=== PATIENT | male | born 1965 | race Caucasian/White ===

== ENCOUNTER 2018-08-28 06:44 | Day surgery (SDC) | payer OTHER ==
[2018-08-28] MEDS ORDERED: LACTATED RINGER'S 1,000 ML IV (09:00)
[2018-08-28] MEDS ORDERED: PROPOFOL 20 ML (10:04)
[2018-08-28] MEDS ORDERED: FENTAnyl 50 MCG/ML VIAL (10:04)
[2018-08-28] MEDS ORDERED: LIDOCAINE 2% (SDV) 5 ML INJ (10:04)
[2018-08-28] MEDS ORDERED: MIDAZOLAM 1 MG/ML 2 ML INJ (10:14)
[2018-08-28] MEDS ORDERED: MEPERIDINE 25 MG INJ IV (10:30)
[2018-08-28] MEDS ORDERED: HYDROmorphONE 1 MG/5 ML IV SYRINGE IV ×3 (10:30)
[2018-08-28] MEDS ORDERED: ONDANSETRON 4 MG INJ IV (10:30)
[2018-08-28] MEDS ORDERED: OXYCODONE/ACETAMINOPHEN (5/325) TAB PO ×2 (10:30)
[2018-08-28] MEDS ORDERED: ONDANSETRON 4 MG INJ (11:23)
[2018-08-28] MEDS ORDERED: DEXAMETHASONE 4 MG/ML 5 ML INJ (11:23)
[2018-08-28] MEDS: IOHEXOL 300MG/ML 30 ML BTL (11:36)
[2018-08-28] MEDS: ERTAPENEM SODIUM 1 GM in SOD CHLORIDE 0.9% 100 ML IVPB (12:56)
== END 2018-08-28 15:40 | disposition home or self-care (01) ==
LOC: SDS 06:44
DX: N35.919 Unspecified urethral stricture, male, unspecified site (principal); F17.200 Nicotine dependence, unspecified, uncomplicated
CPT/HCPCS: 52341